=== PATIENT | male | born 1940 | race Caucasian/White ===

== ENCOUNTER 2016-03-16 13:37 | Outpatient (CLI) | payer MEDICARE | END 2016-03-16 13:38 | disposition home or self-care (01) | DX: I48.0 Paroxysmal atrial fibrillation (principal); Z79.899 Other long term (current) drug therapy ==

== ENCOUNTER 2016-03-31 13:17 | Outpatient (CLI) | payer MEDICARE | END 2016-03-31 13:18 | disposition home or self-care (01) | DX: M19.072 Primary osteoarthritis, left ankle and foot (principal); M79.672 Pain in left foot ==

== ENCOUNTER 2016-03-31 13:49 | Outpatient (CLI) | payer MEDICARE | END 2016-03-31 13:50 | disposition home or self-care (01) | DX: M79.672 Pain in left foot (principal) ==

== ENCOUNTER 2017-01-04 11:20 | Outpatient (CLI) | payer MEDICARE ==
[2017-01-04 17:57] LABS: BASOPHILS % (AUTO) 0.7 %; EOSINOPHILS # (AUTO) 0.5 10^3/uL (0.0-0.7); EOSINOPHILS % (AUTO) 7.5 %; HCT - HEMATOCRIT 47.3 % (42.0-52.0); HGB - HEMOGLOBIN 15.7 g/dL (14.0-18.0); LYMPHOCYTES # (AUTO) 1.2 10^3/uL (1.5-3.5); LYMPHOCYTES % (AUTO) 17.2 %; MEAN CORPUSCULAR HEMOGLOBIN 34.7 pg (27.0-31.0); MEAN CORPUSCULAR HGB CONC 33.2 g/dL (32.0-36.0); MEAN CORPUSCULAR VOLUME 104.3 fL (80.0-94.0); MEAN PLATELET VOLUME 10.2 fL (7.4-11.4); MONOCYTES # (AUTO) 0.7 10^3/uL (0.0-1.0); MONOCYTES % (AUTO) 10.2 %; NEUTROPHILS # (AUTO) 4.7 10^3/uL (1.5-6.6); NEUTROPHILS % (AUTO) 64.4 %; RED BLOOD COUNT 4.54 10^6/uL (4.70-6.10); RED CELL DISTRIBUTION WIDTH 14.5 % (12.0-15.0); UNCORRECTED WHITE BLOOD COUNT 7.2 x10^3/uL; WHITE BLOOD COUNT 7.2 x10^3/uL (4.8-10.8)
[2017-01-04 18:45] LABS: ALBUMIN/GLOBULIN RATIO 1.3 (1.0-2.2); BILIRUBIN,TOTAL 1.2 mg/dL (0.2-1.0); CALCIUM 10.7 mg/dL (8.5-10.3); CREATININE 1.2 mg/dL (0.6-1.2); POTASSIUM 4.7 mmol/L (3.5-5.0); TOTAL PROTEIN 7.1 g/dL (6.7-8.2)
== END 2017-01-04 11:21 | disposition home or self-care (01) ==
LOC: LAB.F 11:20
PROVIDERS: ATTEND Physician Assistant Medical
DX: I10 Essential (primary) hypertension (principal)
CPT/HCPCS: 36415; 80053; 85025

== ENCOUNTER 2017-01-04 15:49 | Outpatient (CLI) | payer MEDICARE ==
--- NOTE | 2017-01-05 09:34 | XRAY Report ---
LEFT FINGER SERIES: 01/04/2017 COMPARISON STUDY: None. INDICATION: Pain in the left finger. TECHNIQUE: Three views of the left fingers. FINDINGS: There is mild soft tissue swelling of the middle finger. No acute bone findings are seen. Alignment is anatomic. No appreciable degenerative changes. IMPRESSION: MILD SOFT TISSUE SWELLING OF THE MIDDLE FINGER. NO ACUTE BONE FINDINGS. JOB #: [id number] EXT JOB #:[id number]
== END 2017-01-04 15:50 | disposition home or self-care (01) ==
LOC: DI.S 15:49
PROVIDERS: ATTEND Physician Assistant Medical
DX: M79.645 Pain in left finger(s) (principal); I10 Essential (primary) hypertension; R22.32 Localized swelling, mass and lump, left upper limb
CPT/HCPCS: 36415; 73140; 80053; 85025

== ENCOUNTER 2017-01-25 14:49 | Outpatient (CLI) | payer MEDICARE ==
[2017-01-25 17:59] LABS: CREATININE 1.2 mg/dL (0.6-1.2); POTASSIUM 4.4 mmol/L (3.5-5.0)
== END 2017-01-25 14:50 | disposition home or self-care (01) ==
LOC: LAB.F 14:49
PROVIDERS: ATTEND Internal Medicine Endocrinology, Diabetes & Metabolism
DX: M85.80 Other specified disorders of bone density and structure, unspecified site (principal)
CPT/HCPCS: 36415; 80048

== ENCOUNTER 2017-06-15 11:58 | Outpatient (CLI) | payer MEDICARE ==
--- NOTE | 2017-06-17 12:27 | Ultrasound Report ---
ANKLE BRACHIAL INDEX: 06/15/2017 HISTORY: Claudication. TECHNIQUE: Real-time sonographic vascular imaging was performed by the life skills specialist through the extremities utilizing both color-flow and Doppler flow analysis. Multiple risk control field representative static images were saved for review. RIGHT SIDE SITE PSV WAVEFORM STEN GINO -- MAO -- RAMO -- DAVID -- EIA -- BROADCAST ENGINEER -- PSFA -- MSFA -- DSFA -- PFA -- POP -- ALTON -- INSTRUCTOR WARPER 11 monophasic PER -- -- DPA 75 biphasic LEFT SIDE SITE PSV WAVEFORM STEN DAVID -- EIA -- BROADCAST ENGINEER -- PSFA -- MSFA -- DSFA -- PFA -- POP -- ALTON -- INSTRUCTOR WARPER 29 monophasic PER -- -- DPA 25 biphasic ARLEN SYSTOLIC PRESSURES RIGHT LEFT BRACHIAL ARTERY 129/77 125/74 POSTERIOR TIBIAL ARTERY 133/75 139/74 ANTERIOR TIBIAL ARTERY -- -- PERONEAL ARTERY -- -- ANKLE/ARM INDEX 1.03 1.07 FINDINGS/IMPRESSION: RIGHT ANKLE-BRACHIAL INDEX 1.03, LEFT 1.07. TD: 06/15/2017 12:58 [facility]
== END 2017-06-15 11:59 | disposition home or self-care (01) ==
LOC: DI 11:58
PROVIDERS: ATTEND Family Medicine
DX: I73.9 Peripheral vascular disease, unspecified (principal)
CPT/HCPCS: 93922

== ENCOUNTER 2017-06-17 09:17 | Outpatient (CLI) | payer MEDICARE ==
[2017-06-17 18:34] LABS: ALBUMIN/GLOBULIN RATIO 1.3 (1.0-2.2); ALKALINE PHOSPHATASE 85 IU/L (42-121); ALT ALANINE AMINOTRANSFERASE 28 IU/L (10-60); AST ASPARTATE AMINOTRANSFERASE 38 IU/L (10-42); BILIRUBIN,TOTAL 1.5 mg/dL (0.2-1.0); BUN - BLOOD UREA NITROGEN 20 mg/dL (6-20); CALCIUM 10.5 mg/dL (8.5-10.3); CARBON DIOXIDE - CO2 27 mmol/L (21-32); CHLORIDE 101 mmol/L (101-111); CHOL/HDL RATIO 2.6 (<5.0); CHOLESTEROL 164 mg/dL; CREATININE 1.2 mg/dL (0.6-1.2); GFR - MDRD 59 (>89); GLUCOSE 104 mg/dL (70-100); HDL CHOLESTEROL 62 mg/dL; LDL CHOLESTEROL,CALCULATED 87 mg/dL; LDL/HDL RATIO 1.4 (<3.6); SODIUM 135 mmol/L (135-145); VLDL CHOLESTEROL 15 mg/dL
== END 2017-06-17 09:18 | disposition home or self-care (01) ==
LOC: LAB.F 09:17
PROVIDERS: ATTEND Physician Assistant Medical
DX: I73.9 Peripheral vascular disease, unspecified (principal); Z01.89 Encounter for other specified special examinations
CPT/HCPCS: 36415; 80053; 80061; 83721

== ENCOUNTER 2017-07-28 11:53 | Outpatient (CLI) | payer MEDICARE | END 2017-07-28 11:54 | disposition E | LOC: EMS 11:53 | PROVIDERS: ATTEND Surgery ==